=== PATIENT | male | born 1980 | race Caucasian/White ===

== ENCOUNTER 2016-05-25 05:02 | Emergency (ER) | payer OTHER ==
--- NOTE | ~2016-05-25 | CT24 ---
[facility] A Service of [facility] & [facility] RADIOLOGY TEXT RESULTS PATIENT: MARYURI HICKEY LOCATION: [facility] 55577-55 : 78 UNIT #: [id number] AGE: [address]: Jane Bañuelos MD SEX: M ORDER DR: [id number] [facility] [address] [place], [place] [address] [id number] I MR#: [id number] Acc #: [id number] NAME: MARYURI HICKEY : 1980 SEX: M STUDY DATE/TIME: 05/25/2016 4:44 UNIT: C[facility] ROOM: 95078 STUDY DESCRIPTION: CT Angio Neck Stroke Attending Physician: Jane Bañuelos M.D. Ordering Physician: Neeraj Doshi M.D. Primary Care Physician: Price Porras M.D. MEDICAL IMAGING REPORT This report is preliminary unless electronic signature is present EXAM CT neck stroke protocol FINDINGS Result text under the CT head stroke protocol examination. Please see that examination for full report. Dictated by... Michael Henry M.D. THIS IS AN ELECTRONICALLY VERIFIED REPORT Michael Henry M.D. at 05/25/2016 1:05 PM GEOVANNY/kenyon TD: 05/25/2016 09:22 JOB #: [id number] MEDICAL IMAGING REPORT Page 1 of 1 COPY
--- NOTE | ~2016-05-25 | CT72 ---
[facility] A Service [facility] RADIOLOGY TEXT RESULTS PATIENT: MARYURI HICKEY LOCATION: [facility] : [birth year] UNIT #: [id number] AGE: [address]: Neeraj Doshi MD SEX: M ORDER DR: [id number] [address] [address] [id number] E MR#: [id number] Acc #: [id number] NAME: MARYURI HICKEY : 1980 SEX: M STUDY DATE/TIME: 05/25/2016 4:34 UNIT: KATELYN ROOM: STUDY DESCRIPTION: CT Head Wo Contrast Stroke Attending Physician: Neeraj Doshi M.D. Ordering Physician: Neeraj Doshi M.D. Primary Care Physician: Price Porras M.D. MEDICAL IMAGING REPORT This report is preliminary unless electronic signature is present EXAM CT head without contrast INDICATIONS Right-sided facial droop and right-sided body weakness with slurred speech tonight. PROCEDURE Unenhanced CT head. This CT exam was performed with one or more of the following radiation dose reduction techniques: automatic exposure control, adjustment of mA and/or kV according to patient size, and iterative reconstruction. COMPARISON None. FINDINGS No acute hemorrhage. No abnormal mass effect, extraaxial collection or hydrocephalus. No definitive evidence for an acute early subacute large territory infarct. No calvarial fracture. IMPRESSION No definite acute intracranial findings. If there is ongoing concern for an acute or early subacute infarct brain MRI may be helpful. Dictated by... Esteban Cuello M.D. THIS IS AN ELECTRONICALLY VERIFIED REPORT Esteban Cuello M.D. at 05/29/2016 7:30 AM BARB/joni [facility] A [facility] RADIOLOGY TEXT RESULTS PATIENT: MARYURI HICKEY LOCATION: [facility] : 78 UNIT #: [id number] AGE: [address]: Neeraj Doshi MD SEX: M ORDER DR: TD: 05/25/2016 06:35 JOB #: [id number] MEDICAL IMAGING REPORT Page 1 of 1 COPY
--- NOTE | ~2016-05-25 | CT18 ---
[facility] A Service of [facility] & [facility] RADIOLOGY TEXT RESULTS PATIENT: MARYURI HICKEY LOCATION: [facility] [address]-74 : 78 UNIT #: [id number] AGE: [address]: Jane Bañuelos MD SEX: M ORDER DR: [id number] [facility] [address] [place], [place] [address] [id number] I MR#: [id number] Acc #: [id number] NAME: MARYURI HICKEY. : 1980 SEX: M STUDY DATE/TIME: 05/25/2016 4:44 UNIT: C[facility]OF ROOM: 58775 STUDY DESCRIPTION: CT Angio Head Stroke Attending Physician: Jane Bañuelos M.D. Ordering Physician: Neeraj Doshi M.D. Primary Care Physician: Price Porras M.D. MEDICAL IMAGING REPORT This report is preliminary unless electronic signature is present EXAM CT scan of the head and neck with contrast with carotid CT angiography HISTORY Right-sided facial droop and weakness with slurred speech beginning earlier in the day. TECHNIQUE Thin section imaging was obtained from the mid mediastinum to the top of the head with contrast. 100 mL of Isovue was used. CT angiography was performed with thick sliding MIPs, curved planar reformats, and 3D volumetric imaging with surface-shaded and volume-shaded display. This CT exam was performed with one or more of the following radiation dose reduction techniques: automatic exposure control, adjustment of mA and/or kV according to patient size, and iterative reconstruction. FINDINGS Extravascular structures are remarkable for mild emphysematous changes at the lung apex. In the posterior circulation, the right vertebral artery is normal. There is dissection in the mid cervical portion of the left vertebral artery beginning at the C6-7 level and extending up to about C3. There is flow in both the true and false lumens. 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 The left vertebral artery is dilated to a maximum diameter of 7.5 x 10 mm. The upper extent of the dissection is at C3-4. Above this, the distal left vertebral is widely patent. The right vertebral is normal and of good size. No basilar artery filling defects are seen. In the carotid circulation both bifurcations are clear. There is no evidence of atherosclerotic plaque, fibromuscular hyperplasia, or dissection. No aneurysms are seen. Intracranial vessels fill normally. [facility] A Service of [facility] RADIOLOGY TEXT RESULTS PATIENT: MARYURI HICKEY LOCATION: [facility] [id number] : 78 UNIT #: [id number] AGE: [address]: Jane Bañuelos MD SEX: M ORDER DR: IMPRESSION 1. Left vertebral dissection extending from about C3-4 down to C6-7 with a focal aneurysmal dilatation in the midportion of this dissection with maximum diameter of the left vertebral across the dissected segment measuring 7.5 x 10 mm. 2. No distal filling defects are seen. 3. Otherwise, negative CT angiogram. Dictated by... Michael Henry M.D. THIS IS AN ELECTRONICALLY VERIFIED REPORT Michael Henry M.D. at 05/25/2016 1:05 PM GEOVANNY/kenyon TD: 05/25/2016 09:03 JOB #: [id number] MEDICAL IMAGING REPORT Page 1 of 1 COPY
--- NOTE | ~2016-05-25 | EKG ---
PATIENT: MARYURI HICKEY UNIT #: [id number] Ventricular Rate: 71 BPM Atrial Rate: 71 BPM P-R Interval: 186 ms QRS Duration: 96 ms Q-T Interval: 390 ms QTC Calculation(Bezet): 423 ms P Mcconnells: 66 degrees Calculated T Mcconnells: 24 degrees Diagnosis Line: Normal sinus rhythm with sinus arrhythmia Diagnosis Line: Normal ECG Diagnosis Line: No previous ECGs available Diagnosis Line: Confirmed by BRYCE CURRAN MD ([id number]) on 05/26/2016 Diagnosis Line: 6:59:37 PM INTERPRETING MD: MAGDY LYONS
[2016-05-25 04:45] LABS: POC - CREATININE 1.17 mg/dL (0.64-1.27); POC - GFR >60.0 mL/min (>60)
[2016-05-25 04:56] LABS: BASOPHIL# 0.1 X10e3 (0-0.3); BASOPHIL% 1.4 % (0-2.5); EOSINOPHIL# 0.1 X10e3 (0-0.7); EOSINOPHIL% 0.9 % (0.0-7.0); HEMATOCRIT 44.1 % (38.0-50.0); HEMOGLOBIN 15.1 gm/dL (13.0-16.0); LYMPHOCYTE# 1.9 X10e3 (1.0-3.5); LYMPHOCYTE% 18.3 % (17.0-45.0); MEAN CELL VOLUME 96.3 FL (83-96); MEAN CORPUSCULAR HGB CONC 34.2 g/dL (30-36); MONOCYTE# 0.8 X10e3 (0-1.0); MONOCYTE% 7.9 % (3.0-12.0); NEUTROPHIL# 7.3 X10e3 (1.5-7.1); NEUTROPHIL% 71.5 % (40-75); PLATELET COUNT 228 X10e3 (140-420); RED BLOOD COUNT 4.58 X10e (3.90-5.60); RED CELL DISTRIBUTION WIDTH 11.7 % (11.0-15.5); WHITE BLOOD COUNT 10.2 X10e3 (4.0-10.5)
[2016-05-25 04:58] LABS: DIFF IND NO
[~2016-05-25 05:02] MED LIST: LOTREL 5/20 MG1 CAP PO; NO MEDICATIONS; ROBAXIN500 MG PO; VICODIN PO; VOLTAREN75 MG PO
[2016-05-25 05:10] LABS: PARTIAL THROMBOPLASTIN TIME 29.3 SECONDS (23.5-31.3); PROTHROMBIN TIME (PATIENT) 10.9 SECONDS (9.6-11.5)
[2016-05-25 05:24] LABS: ALBUMIN SERUM 4.4 g/dL (3.5-5.0); BILIRUBIN, DIRECT 0.2 mg/dL (0.0-0.2); BILIRUBIN,INDIRECT 1.7 mg/dL (0.0-0.9); BILIRUBIN,TOTAL 1.9 mg/dL (0.2-2.0); BUN/CREATININE RATIO 22.85; CALCIUM SERUM 9.1 mg/dL (8.4-10.2); CREATININE SERUM 0.7 mg/dL (0.6-1.4); GLOM FILT RATE Estimated 119.8 mL/min (>60); POTASSIUM 4.2 mmol/L (3.5-5.1); PROTEIN TOTAL SERUM 7.6 g/dL (6.0-8.3)
== END 2016-05-25 07:34 | disposition hospice, home (50) ==
LOC: CFTX 05:02
PROVIDERS: Emergency Medicine
DX: I63.9 Cerebral infarction, unspecified (principal); R29.713 NIHSS score 13
CPT/HCPCS: 70450; 70496; 70498; 80048; 80076; 82565; 82947; 85025; 85610; 85730; 93005; 96365; 99291; Q9967

== ENCOUNTER 2016-05-30 15:03 | Inpatient (IN) | payer OTHER ==
--- NOTE | ~2016-05-30 | CT18 ---
[facility] A Service of [facility] & [facility] RADIOLOGY TEXT RESULTS PATIENT: MARYURI HICKEY LOCATION: A 305-01 : [birth year] UNIT #: [id number] AGE: [address]: Jane Bañuelos MD SEX: M ORDER DR: [id number] [facility] [address] [place], [place] [address] [id number] I MR#: [id number] Acc #: [id number] NAME: MARYURI HICKEY. : 1980 SEX: M STUDY DATE/TIME: 05/30/2016 14:27 [facility] 02662 STUDY DESCRIPTION: CT Angio Head Stroke Attending Physician: Jane Bañuelos M.D. Ordering Physician: Selina Stuart M.D. Primary Care Physician: Price Porras M.D. MEDICAL IMAGING REPORT This report is preliminary unless electronic signature is present EXAM CT scan of the head and neck with angiographic reconstructions HISTORY Slurred speech, new onset headache, right arm deficit for 15 minutes TECHNIQUE The patient was given 80 mL of Isovue 370 and spiral imaging was performed from the aortic arch through the brain. 3-D reconstructions of the arterial structures were generated and NASCET criteria was utilized. This CT exam was performed with one or more of the following radiation dose reduction techniques: automatic exposure control, adjustment of mA and/or kV according to patient size, and iterative reconstruction. FINDINGS The lung apices are clear. Thyroid gland, submandibular glands and parotid glands are normal. There is no neck mass or adenopathy visible. The ventricles and subarachnoid spaces are normal. There are no masses or extraaxial fluid collections or hemorrhage. Vascular findings: The aortic arch is normal in size. The great vessels are all patent and have separate origins. The vertebral arteries both arise from the subclavian arteries and they are equal in size proximally. The left vertebral artery shows some dilation in its mid portion and there is a short segment dissection in this region. On the reconstructed images, this 2 cm long segment of the vertebral artery is very tortuous and enlarged and it appears unchanged from prior study from 05/25/2016. The right vertebral artery is normal in appearance. The basilar artery and posterior cerebral arteries and middle and anterior cerebral arteries are normal in appearance. The right common carotid artery and internal carotid artery are normal in appearance as are the left common carotid artery and internal carotid artery. The posterior cerebral arteries, the [facility] A Service of [facility] & [facility] RADIOLOGY TEXT RESULTS PATIENT: MARYURI HICKEY LOCATION: C3A 305-01 : 78 UNIT #: [id number] AGE: [address]: Jane Bañuelos MD SEX: M ORDER DR: middle cerebral arteries and anterior cerebral arteries are normal in appearance. IMPRESSION 1. There is about a 2 cm long segment of the mid left vertebral artery that is markedly abnormal. It shows areas of tortuosity and possible aneurysm formation as well as possible short segment dissections. These are unchanged from 05/25/2016. The rest of the vascular structures including the right vertebral artery, carotid system and intracranial circulation appears normal. 2. The maximum transverse diameter of the vertebral artery on the left on the axial images is about a centimeter. Dictated by... Avila Hutchison M.D. THIS IS AN ELECTRONICALLY VERIFIED REPORT Avila Hutchison M.D. at 05/31/2016 8:08 AM FEL/to TD: 05/30/2016 21:59 JOB #: [id number] MEDICAL IMAGING REPORT Page 1 of 1 COPY
--- NOTE | ~2016-05-30 | HP ---
Unit #: [id number] #: [id number] Patient: MARYURI HICKEY [id number] [facility] [place], [place] [address] [id number] I MR#: [id number] NAME: MARYURI HICKEY. ROOM: 10997 Age: 36 Sex: M Admission Date: 05/30/2016 : 1980 Attending Physician: Jane Bañuelos M.D. Primary Care Physician: Price Porras M.D. HISTORY AND PHYSICAL CHIEF COMPLAINT Right upper extremity and lower extremity weakness and slurred speech. HISTORY OF PRESENTING ILLNESS Patient is a 36-year-old male who came to the ER last week and was found to have a possible stroke. He received TPA, and after that, an MRI was done which showed vertebral artery dissection. Patient was transferred to [facility] for further evaluation. According to patient, a repeat MRI was done there, and it was stable. Patient was discharged home the next day on aspirin and pravastatin. Patient has not felt normal since discharge from the hospital and is slowly getting worse. Today, he was dysarthric. He started having right upper and lower extremity kind of numbness and strange kind of feeling, weakness, dysarthria, and deficit on the right side. Patient came to [facility] ER. A CTA was done which showed no new changes and was unchanged from last week. Patient does not have any other complaint of fever, chills, or rigors, no complaint of chest pain, no complaint of abdominal pain, and no complaint of constipation or diarrhea. SOCIAL HISTORY Patient is homeless. He has been staying with his friend for a few days and then in a alf. He is a smoker. He used to smoke two packs per day and has smoked since the age of 10. He has cut down but is still smoking. No history of alcohol abuse. He does have a history of drug abuse. He uses marijuana and used to use meth which he has not used for the last one month. FAMILY HISTORY Patient's paternal grandmother, uncle, and aunts have history of stroke. There is a strong history of malignancy. Patient's father had colon cancer. No history of diabetes mellitus. ALLERGIES No known drug allergies. HOME MEDICATIONS 1. Samuel aspirin 325 mg p.o. daily. 2. Pravastatin 80 mg at bedtime. REVIEW OF SYSTEMS As per History of Presenting Illness. PHYSICAL EXAMINATION Unit #: [id number] #: [id number] Patient: MARYURI HICKEY GENERAL: Patient is lying in bed in no respiratory distress. VITAL SIGNS: Blood pressure is 131/93. On admission, patient's blood pressure was 162/116, respiratory rate 14, pulse 82, temperature 98.7, and oxygen saturation is 99%. HEENT: Head is normocephalic. Eye movements are normal. NECK: Supple. CHEST: Fair air entry. No additional sounds. Chest wall with no tenderness and no deformity. CARDIOVASCULAR: S1 and S2 positive. Regular rhythm. ABDOMEN: Soft, nontender, and nondistended. CENTRAL NERVOUS SYSTEM: Awake, alert, and oriented x3. He does have some stuttering of speech, otherwise, able to understand him. Right upper and lower extremities 4+ over 5 and 5 over 5 on the left side. Cranial nerves seem to be stable. PSYCHIATRIC: Seems to be stable at this time. DIAGNOSTIC STUDIES LABORATORY: WBC 6.5, hemoglobin 15.7, hematocrit 46.3, and platelet count of 248,000. Sodium 142, potassium 4.1, chloride 105, BUN 10, and creatinine 0.8. Liver enzymes are stable. PT-INR is 10.2 and 1. Urinalysis was done which was normal. Urine drug screen was done which was positive for amphetamine and marijuana. ASSESSMENT AND PLAN Patient is being admitted to telemetry unit. MRI of the head is being done. Dr. Anderson has been consulted and has already seen him. Aspirin is being continued. Lipitor is being continued. Tobacco cessation counseling has been done. Protonix 40 mg daily will be continued. Discharge Summary from [facility] will be obtained. Lab workup will be repeated tomorrow morning. PT/OT will be done tomorrow morning. Discussed with patient and patient's ex who is in the room at length. Please refer to progress note for further orders. Dictated by Leandra Osuna TD: 05/30/2016 19:29 JOB #: [id number] HISTORY AND PHYSICAL Page 1 of 1 X Jane Bañuelos MD X HISTORY AND PHYSICAL
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
--- NOTE | ~2016-05-30 | MR18 ---
[facility] A Service [facility] RADIOLOGY TEXT RESULTS PATIENT: MARYURI HICKEY LOCATION: [facility] : 78 UNIT #: [id number] AGE: [address]: Jane Bañuelos MD SEX: M ORDER DR: [id number] [facility] [address] [facility] [place], [place] [address] [id number] I MR#: [id number] Acc #: [id number] NAME: MARYURI HICKEY. : 1980 SEX: M STUDY DATE/TIME: 05/31/2016 8:13 UNIT: A PCU ROOM: [facility] STUDY DESCRIPTION: MR Brain Wo Contrast Attending Physician: Jane Bañuelos M.D. Ordering Physician: Selina Stuart M.D. Primary Care Physician: Price Porras M.D. MRI CENTER REPORT This report is preliminary unless electronic signature is present. EXAM Brain MRI. HISTORY Slurred speech with new onset of headache and right arm weakness 15 days prior to admission. Previous history of stroke. TECHNIQUE Multiplanar imaging of the brain was performed, including diffusion weighted images. FINDINGS On diffusion weighted imaging, there is no evidence of abnormal restricted diffusion to suggest a recent infarct. The brain images show minimal chronic ischemic changes around the ventricles. There is no evidence of mass lesion, hemorrhage, or edema. Extraaxial structures are remarkable for mucosal thickening in the maxillary sinuses, right worse than left. IMPRESSION Chronic maxillary sinusitis. Minimal chronic ischemic changes around the ventricles. No acute findings. Dictated by... Michael Henry M.D. THIS IS AN ELECTRONICALLY VERIFIED REPORT Michael Henry M.D. at 05/31/2016 4:28 PM GEOVANNY/tin TD: 05/31/2016 12:41 JOB #: [id number] [facility] A Service [facility] RADIOLOGY TEXT RESULTS PATIENT: MARYURI HICKEY LOCATION: [facility] : 78 UNIT #: [id number] AGE: [address]: Jane Bañuelos MD SEX: M ORDER DR: MRI CENTER REPORT Page 1 of 1 COPY
--- NOTE | ~2016-05-30 | EKG ---
PATIENT: MARYURI HICKEY UNIT #: [id number] Ventricular Rate: 83 BPM Atrial Rate: 83 BPM P-R Interval: 170 ms QRS Duration: 98 ms Q-T Interval: 360 ms QTC Calculation(Bezet): 423 ms P [place]: 67 degrees Calculated R [place]: 37 degrees Calculated T [place]: 55 degrees Diagnosis Line: Normal sinus rhythm Diagnosis Line: Normal ECG Diagnosis Line: When compared with ECG of 25-MAY-2016 06:13, Diagnosis Line: No significant change was found Diagnosis Line: Confirmed by BRYCE CURRAN MD ([id number]) on 05/30/2016 Diagnosis Line: 10:31:50 PM INTERPRETING MD: MAGDY LYONS
--- NOTE | ~2016-05-30 | DS ---
Unit #: [id number] #: [id number] Patient: MARYURI HICKEY [id number] [facility]. [place] [id number] [facility]. [place], [place] [address] [id number] I MR#: [id number] NAME: MARYURI HICKEY. ROOM: 305 Age: Sex: M Admission Date: 05/30/2016 : 1980 Discharge Date: 05/31/2016 Attending Physician: Jane Bañuelos M.D. Primary Care Physician: Price Porras M.D. DISCHARGE SUMMARY DISCHARGE DIAGNOSES 1. Questionable transient ischemic attack, status post neurology evaluation, status post negative workup, stable to be discharged. Continue home aspirin and statin. 2. Tobacco use: Patient was counseled on importance of quitting tobacco. 3. History of illicit drug abuse in the past stating that he has been drug free. CONSULTS DURING THIS HOSPITAL STAY Dr. Anderson - Neurology. LABS, DIAGNOSTICS AND PROCEDURES DURING THIS HOSPITAL STAY CT of the head without contrast on admission - no acute intracranial findings. CT angio of the head - abnormal left vertebral artery and 2 cm long segment. Possible aneurysm formation as well as possible short segment dissection which are unchanged from May 25, 2016. The rest of the vascular structures including the right vertebral artery, coronary system and intracranial circulation appears normal. MRI of the brain shows chronic maxillary sinusitis, minimal chronic ischemic changes around the ventricles. No acute findings. HISTORY OF PRESENT HOSPITAL STAY Please refer to H and P done by my colleague, Dr. Bañuelos, for initial presentation on this gentleman. ACTIVE PROBLEMS AND DIAGNOSES Questionable transient ischemic attack: Patient came in with headache and left sided weakness along with some speech difficulties. Patient was admitted. Had workup as above. Had been evaluated by neurologist, Dr. Anderson. His symptoms resolved completely. Again, there were some abnormal changes in the CT angio. However, this had been stable since earlier this month exam. Again, status post evaluation per Neurology her feels patient is stable to be discharged home with the outpatient followup with [facility]. Continue aspirin and statin. History of illicit drug abuse and tobacco use: Counseled on the importance of quitting tobacco. Hypertension: Will start on low dose of hydrochlorothiazide. Outpatient followup with primary care physician, Dr. Price Porras. Script is provided. Unit #: [id number] #: [id number] Patient: MARYURI HICKEY Dictated by... Benjie De Leon M.D. OC/df TD: 06/01/2016 07:22 JOB #: [id number] DISCHARGE SUMMARY Page 1 of 1 X Benjie De Leon MD DISCHARGE SUMMARY
--- NOTE | ~2016-05-30 | CT71 ---
[facility] A Service [facility] RADIOLOGY TEXT RESULTS PATIENT: MARYURI HICKEY LOCATION: [facility] 305 : 78 UNIT #: [id number] AGE: [address]: Jane Bañuelos MD SEX: M ORDER DR: [id number] [facility] [address] [place] [facility] [place], [place] [address] [id number] I MR#: [id number] Acc #: [id number] NAME: MARYURI HICKEY. : 1980 SEX: M STUDY DATE/TIME: 05/30/2016 14:17 UNIT: CEDOF ROOM: [id number] STUDY DESCRIPTION: CT Head Wo Contrast Attending Physician: Jane Bañuelos M.D. Ordering Physician: Selina Stuart M.D. Primary Care Physician: Price Porras M.D. MEDICAL IMAGING REPORT This report is preliminary unless electronic signature is present EXAM CT head INDICATIONS Slurred speech. New onset headache. Right arm deficit. TECHNIQUE CT of the head without contrast. This CT exam was performed with one or more of the following radiation dose reduction techniques: Automatic exposure control, adjustment of mA and/or kV according to patient size, and iterative reconstruction. COMPARISON CT head dated 05/25/2016. FINDINGS There is no acute intracranial hemorrhage, mass lesion, or acute infarct. Mustafa-white matter differentiation is normal. There is no acute osseous abnormalities. There is near-complete opacification of the right maxillary sinus and some mild mucosal thickening of the left maxillary sinus. IMPRESSION No acute intracranial findings. Dictated by... Lane Mcmillan M.D. THIS IS AN ELECTRONICALLY VERIFIED REPORT Lane Mcmillan M.D. at 05/31/2016 9:01 AM [facility] A [facility] RADIOLOGY TEXT RESULTS PATIENT: MARYURI HICKEY LOCATION: [facility] 305 : 78 UNIT #: [id number] AGE: [address]: Jane Bañuelos MD SEX: M ORDER DR: TD: 05/30/2016 20:33 JOB #: [id number] MEDICAL IMAGING REPORT Page 1 of 1 COPY
[2016-05-30 14:33] LABS: BASOPHIL# 0.1 X10e3 (0-0.3); BASOPHIL% 1.1 % (0-2.5); EOSINOPHIL# 0.1 X10e3 (0-0.7); EOSINOPHIL% 1.6 % (0.0-7.0); HEMATOCRIT 46.3 % (38.0-50.0); HEMOGLOBIN 15.7 gm/dL (13.0-16.0); LYMPHOCYTE# 1.8 X10e3 (1.0-3.5); LYMPHOCYTE% 27.5 % (17.0-45.0); MEAN CELL VOLUME 97.5 FL (83-96); MEAN CORPUSCULAR HEMOGLOBIN 33.1 PG (28-34); MEAN PLATELET VOLUME 8.2 FL (6.5-11.5); MONOCYTE# 0.6 X10e3 (0-1.0); MONOCYTE% 9.1 % (3.0-12.0); NEUTROPHIL# 3.9 X10e3 (1.5-7.1); NEUTROPHIL% 60.7 % (40-75); PLATELET COUNT 248 X10e3 (140-420); RED BLOOD COUNT 4.75 X10e (3.90-5.60); WHITE BLOOD COUNT 6.5 X10e3 (4.0-10.5)
[2016-05-30 14:35] LABS: DIFF IND NO
[2016-05-30 14:54] LABS: ALBUMIN SERUM 4.5 g/dL (3.5-5.0); BILIRUBIN, DIRECT 0.1 mg/dL (0.0-0.2); BILIRUBIN,INDIRECT 0.6 mg/dL (0.0-0.9); BILIRUBIN,TOTAL 0.7 mg/dL (0.2-2.0); BUN/CREATININE RATIO 12.5; CALCIUM SERUM 9.5 mg/dL (8.4-10.2); CREATININE SERUM 0.8 mg/dL (0.6-1.4); GLOM FILT RATE Estimated 113.4 mL/min (>60); POTASSIUM 4.1 mmol/L (3.5-5.1); PROTEIN TOTAL SERUM 7.5 g/dL (6.0-8.3)
[2016-05-30 14:57] LABS: PROTHROMBIN TIME (PATIENT) 10.2 SECONDS (9.6-11.5)
[2016-05-30 15:08] LABS: POC - CKMB 2.1 ng/mL (0.0-7.9); POC - TROPONIN <0.05 ng/mL (<=0.05)
[2016-05-30 16:19] LABS: URINE SOURCE CLEAN CATCH
[2016-05-30 16:43] LABS: URINE APPEARANCE CLEAR; URINE BILIRUBIN NEG (NEG); URINE BLOOD NEG (NEG); URINE COLOR YELLOW; URINE GLUCOSE NEG (NEG); URINE KETONE NEG (NEG); URINE LEUKOCYTE ESTERASE NEG (NEG); URINE NITRATE NEG (NEG); URINE PH 8.5 (5-8); URINE PROTEIN NEG (NEG); URINE SPECIFIC GRAVITY 1.033 (1.003-1.035); URINE UROBILINOGEN 0.2 MG/DL (NEG)
[2016-05-30 16:50] LABS: AMPHETAMINE POS (NEG); BARBITURATES NEG (NEG); BENZODIAZEPINES NEG (NEG); COCAINE NEG (NEG); CULTURE INDICATED? NO; MARIJUANA POS (NEG); OPIATES NEG (NEG); TRICYCLIC ANTIDEPRESSANTS NEG (NEG); U METHADONE NEG (NEG)
[2016-05-30 17:01] LABS: POC - CREATININE 0.87 mg/dL (0.64-1.27); POC - GFR >60.0 mL/min (>60)
[2016-05-30] MEDS ORDERED: BAYER ASPIRIN325 M1 PO (17:07)
[2016-05-30] MEDS ORDERED: PRAVASTATIN SOD80 MG PO (17:08)
[2016-05-31 05:54] LABS: HEMATOCRIT 43.5 % (38.0-50.0); HEMOGLOBIN 14.8 gm/dL (13.0-16.0); MEAN CELL VOLUME 96.1 FL (83-96); MEAN CORPUSCULAR HEMOGLOBIN 32.8 PG (28-34); MEAN CORPUSCULAR HGB CONC 34.1 g/dL (30-36); MEAN PLATELET VOLUME 8.9 FL (6.5-11.5); RED BLOOD COUNT 4.52 X10e (3.90-5.60); RED CELL DISTRIBUTION WIDTH 11.8 % (11.0-15.5)
[2016-05-31 06:09] LABS: WHITE BLOOD COUNT 10.3 X10e3 (4.0-10.5)
[2016-05-31 06:31] LABS: CHOLESTEROL 213 mg/dL (0-200); HDL CHOLESTEROL 44 mg/dL (29-75); LDL/HDL RATIO 3 RATIO (0-4); TRIGLYCERIDES 104 mg/dL (10-160)
[2016-05-31 06:35] LABS: LDL CHOLESTEROL 148 mg/dL (-130)
[2016-05-31 07:18] LABS: ALBUMIN SERUM 4.1 g/dL (3.5-5.0); BILIRUBIN,TOTAL 0.9 mg/dL (0.2-2.0); BUN/CREATININE RATIO 14.28; CALCIUM SERUM 9.2 mg/dL (8.4-10.2); CREATININE SERUM 0.7 mg/dL (0.6-1.4); GLOM FILT RATE Estimated 119.8 mL/min (>60); POTASSIUM 4.2 mmol/L (3.5-5.1); PROTEIN TOTAL SERUM 6.9 g/dL (6.0-8.3)
[2016-05-31] MEDS ORDERED: HYDROCHLOROTH12.5 M1 PO (19:23)
== END 2016-05-31 19:50 | disposition home or self-care (01) | DRG 948 ==
LOC: CED 15:03 → CEDOF 15:09 → C3A PCU 23:29
PROVIDERS: Emergency Medicine; Physician Assistant Medical
PROC: B325YZZ Computerized Tomography (CT Scan) of Bilateral Common Carotid Arteries using Other Contrast (ICD-10-PCS; principal; 2016-05-30)
PROC: B32RYZZ Computerized Tomography (CT Scan) of Intracranial Arteries using Other Contrast (ICD-10-PCS; 2016-05-30)
PROC: B32GYZZ Computerized Tomography (CT Scan) of Bilateral Vertebral Arteries using Other Contrast (ICD-10-PCS; 2016-05-30)
PROC: B328YZZ Computerized Tomography (CT Scan) of Bilateral Internal Carotid Arteries using Other Contrast (ICD-10-PCS; 2016-05-30)
DX: R53.1 Weakness (principal); I10 Essential (primary) hypertension; R47.81 Slurred speech; Z59.0 Homelessness; F17.210 Nicotine dependence, cigarettes, uncomplicated; F41.0 Panic disorder [episodic paroxysmal anxiety]; F15.90 Other stimulant use, unspecified, uncomplicated; F12.90 Cannabis use, unspecified, uncomplicated; Z71.6 Tobacco abuse counseling; R51 Headache
CPT/HCPCS: 36415; 70450; 70496; 70498; 70551; 80048; 80053; 80061; 80076; 80307; 81003; 82553; 82565; 82947; 83036; 84443; 84484; 85025; 85027; 85610; 86140; 92523-GN; 92610; 93005; 94760; 96374; 99291; J1100; J1650; Q9967

== ENCOUNTER 2016-06-13 23:55 | Emergency (ER) | payer OTHER ==
--- NOTE | ~2016-06-13 | CT24 ---
[facility] A Service of [facility] RADIOLOGY TEXT RESULTS PATIENT: MARYURI HICKEY LOCATION: SED : 76 UNIT #: [id number] AGE: [address]: Chito Carrasco MD SEX: M ORDER DR: [id number] [place] [id number] E MR#: [id number] Acc #: [id number] NAME: MARYURI HICKEY : 1980 SEX: M STUDY DATE/TIME: 06/13/2016 23:59 UNIT: SED ROOM: STUDY DESCRIPTION: CT Angio Neck Stroke Attending Physician: Chito Carrasco M.D. Ordering Physician: Chito Carrasco M.D. Primary Care Physician: Price Porras M.D. MEDICAL IMAGING REPORT This report is preliminary unless electronic signature is present. EXAM CT scan of the head and neck with contrast with carotid CT angiography HISTORY Stroke-like symptoms with headache and right-sided weakness beginning earlier in the evening. TECHNIQUE Thin section axial imaging was obtained from the mid mediastinum to the top of the head with contrast. 100 mL of Isovue was used. CT angiography was performed with thick sliding MIPs, curved planar reformats and 3-D volumetric imaging with surface shaded and volume shaded display. This CT exam was performed with one or more of the following radiation dose reduction techniques: automatic exposure control, adjustment of mA and/or kV according to patient size, and iterative reconstruction. FINDINGS Extravascular structures are unremarkable. The CT angiographic study shows normal great vessel origins off the arch and normal carotid distribution circulation with no evidence of dissection plaque or aneurysm. In the posterior circulation there is a short segment dissection of the left vertebral artery in the mid cervical spine. This is a known lesion and has been present on previous CTAs and is appears unchanged. There is no evidence of distal propagation since the previous examination. There is no evidence of distal occlusive disease in the posterior circulation. In the intracranial circulation there is no evidence of aneurysm, vascular malformation or major branch vessel occlusion. 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 No new lesions are seen. Dictated by... Michael Henry M.D. THIS IS AN ELECTRONICALLY VERIFIED REPORT Michael Henry M.D. at 06/14/2016 4:44 PM GEOVANNY/omid TD: 06/14/2016 08:36 JOB #: [id number] MEDICAL IMAGING REPORT Page 1 of 1
--- NOTE | ~2016-06-13 | CT18 ---
[facility] A Service of [facility] RADIOLOGY TEXT RESULTS PATIENT: MARYURI HICKEY LOCATION: SED : 76 UNIT #: [id number] AGE: [address]: Chito Carrasco MD SEX: M ORDER DR: [id number] [place] [id number] E MR#: [id number] Acc #: [id number] NAME: MARYURI HICKEY : 1980 SEX: M STUDY DATE/TIME: 06/13/2016 23:59 UNIT: SED ROOM: STUDY DESCRIPTION: CT Angio Head Stroke Attending Physician: Chito Carrasco M.D. Ordering Physician: Chito Carrasco M.D. Primary Care Physician: Price Porras M.D. MEDICAL IMAGING REPORT This report is preliminary unless electronic signature is present. EXAM CT angiogram of the head HISTORY FINDINGS Please see CT angiogram of the neck for results. Dictated by... Michael Henry M.D. THIS IS AN ELECTRONICALLY VERIFIED REPORT Michael Henry M.D. at 06/14/2016 4:44 PM Oren TD: 06/14/2016 08:38 JOB #: [id number] MEDICAL IMAGING REPORT Page 1 of 1
--- NOTE | ~2016-06-13 | CT72 ---
[facility] A Service of [facility] RADIOLOGY TEXT RESULTS PATIENT: MARYURI HICKEY LOCATION: SED : 76 UNIT #: [id number] AGE: [address]: Chito Carrasco MD SEX: M ORDER DR: [id number] [place] [id number] E MR#: [id number] Acc #: [id number] NAME: MARYURI HICKEY : 1980 SEX: M STUDY DATE/TIME: 06/13/2016 23:45 UNIT: SED ROOM: STUDY DESCRIPTION: CT Head Wo Contrast Stroke Attending Physician: Chito Carrasco M.D. Ordering Physician: Chito Carrasco M.D. Primary Care Physician: Price Porras M.D. MEDICAL IMAGING REPORT This report is preliminary unless electronic signature is present. EXAM CT head, noncontrast, 06/13/2016 HISTORY 36-year-old male in the ED with new-onset focal neurologic deficit. He notes right side weakness beginning tonight at 1930 hours. Headache. Past history of vertebral artery dissection. TECHNIQUE CT examination of the head without IV contrast. This CT exam was performed with one or more of the following radiation dose reduction techniques: Automatic exposure control, adjustment of mA and/or kV according to patient size, and iterative reconstruction. COMPARISON CT head, 05/30/2016. MRI brain, 05/31/2016. FINDINGS No acute intracranial abnormality is demonstrated. No evidence of intracranial hemorrhage, mass, mass effect, cerebral edema or hydrocephalus. No significant change since 05/30/2016. IMPRESSION 1. No acute intracranial abnormality. 2. No change since 05/30/2016. Dictated by... Filemon Mueller M.D. THIS IS AN ELECTRONICALLY VERIFIED REPORT Filemon Mueller M.D. at 06/14/2016 5:59 AM [facility] A Service of [facility] RADIOLOGY TEXT RESULTS PATIENT: MARYURI HICKEY LOCATION: SED : 76 UNIT #: [id number] AGE: [address]: Chito Carrasco MD SEX: M ORDER DR: SANCHEZ/maki TD: 06/14/2016 00:27 JOB #: [id number] MEDICAL IMAGING REPORT Page 1 of 1
--- NOTE | ~2016-06-13 | EKG ---
PATIENT: MARYURI HICKEY UNIT #: [id number] Ventricular Rate: 76 BPM Atrial Rate: 76 BPM P-R Interval: 178 ms QRS Duration: 98 ms Q-T Interval: 364 ms QTC Calculation(Bezet): 409 ms P [place]: 65 degrees Calculated R [place]: 7 degrees Calculated T [place]: 58 degrees Diagnosis Line: Normal sinus rhythm Diagnosis Line: Nonspecific ST abnormality Diagnosis Line: Otherwise normal ECG Diagnosis Line: When compared with ECG of 30-MAY-2016 14:37, Diagnosis Line: No significant change was found Diagnosis Line: Confirmed by SANTY MARTELL MD ([id number]) on 06/15/2016 Diagnosis Line: 12:03:37 PM INTERPRETING MD: JASBIR LYONS
[2016-06-13 23:45] LABS: BASOPHIL# 0.1 X10e3 (0-0.3); EOSINOPHIL# 0.1 X10e3 (0-0.7); EOSINOPHIL% 0.7 % (0.0-7.0); HEMATOCRIT 46.6 % (38.0-50.0); HEMOGLOBIN 16.3 gm/dL (13.0-16.0); LYMPHOCYTE# 1.7 X10e3 (1.0-3.5); LYMPHOCYTE% 17.6 % (17.0-45.0); MEAN CORPUSCULAR HGB CONC 35.1 g/dL (30-36); MEAN PLATELET VOLUME 7.9 FL (6.5-11.5); MONOCYTE# 0.6 X10e3 (0-1.0); NEUTROPHIL# 7.3 X10e3 (1.5-7.1); NEUTROPHIL% 74.7 % (40-75); PLATELET COUNT 220 X10e3 (140-420); RED CELL DISTRIBUTION WIDTH 12.7 % (11.0-15.5); WHITE BLOOD COUNT 9.8 X10e3 (4.0-10.5)
[2016-06-13 23:47] LABS: DIFF IND NO
[2016-06-13 23:55] LABS: POC - CREATININE 0.95 mg/dL (0.64-1.27); POC - GFR >60.0 mL/min (>60)
[~2016-06-13 23:55] MED LIST changes: +BAYER ASPIRIN325 M1 PO; +HYDROCHLOROTH12.5 M1 PO; +PRAVASTATIN SOD80 MG PO
[2016-06-14 00:02] LABS: ALBUMIN SERUM 4.7 g/dL (3.5-5.0); BILIRUBIN, DIRECT 0.2 mg/dL (0.0-0.2); BILIRUBIN,INDIRECT 1.1 mg/dL (0.0-0.9); BILIRUBIN,TOTAL 1.3 mg/dL (0.2-2.0); BUN/CREATININE RATIO 13.75; CALCIUM SERUM 8.8 mg/dL (8.4-10.2); CREATININE SERUM 0.8 mg/dL (0.6-1.4); GLOM FILT RATE Estimated 113.4 mL/min (>60); POTASSIUM 3.5 mmol/L (3.5-5.1); PROTEIN TOTAL SERUM 7.9 g/dL (6.0-8.3)
[2016-06-14 00:05] LABS: PARTIAL THROMBOPLASTIN TIME 28.4 SECONDS (25.6-38.1); PROTHROMBIN TIME (PATIENT) 11.8 SECONDS (9.5-12.4)
[2016-06-14 00:05] LABS: POC - CKMB 3.6 ng/mL (0.0-7.9); POC - TROPONIN <0.05 ng/mL (<=0.05)
[2016-06-14 00:39] LABS: POC - CKMB 5.8 ng/mL (0.0-7.9)
[2016-06-14 00:40] LABS: POC - TROPONIN <0.05 ng/mL (<=0.05)
== END 2016-06-14 01:07 | disposition hospice, home (50) ==
LOC: SED 23:55
PROVIDERS: Emergency Medicine
DX: I63.9 Cerebral infarction, unspecified (principal); I10 Essential (primary) hypertension; F17.210 Nicotine dependence, cigarettes, uncomplicated; Z79.82 Long term (current) use of aspirin
CPT/HCPCS: 36415; 70450; 70496; 70498; 80048; 80076; 82553; 82565; 84484; 85025; 85610; 85730; 93005; 99291; Q9967